=== PATIENT | female | born 1990 | race African-American/Black ===

== ENCOUNTER 2017-12-20 12:58 | Inpatient (IN) | payer OTHER ==
[2017-12-20] MEDS ORDERED: Dinoprostone* 10 MG VAG.SUPP VAGINAL ONE (15:12)
[2017-12-20] MEDS ORDERED: Nalbuphine* 10 MG/ML 1 ML VIAL IV ONE (22:25)
[2017-12-20] MEDS ORDERED: Promethazine INJ(RESTRICTED)* 25 MG/ML 1 ML VIAL IV ONE (22:25)
[2017-12-20] MEDS ORDERED: Buffered Lidocaine 0.9% SYRIN* 5 ML/SYR SYRINGE ONE (22:34)
[2017-12-20 23:05] LABS: ABS Basophils 0.1 10^3/ul (0-0.2); ABS Eosinophils 0.1 10^3/ul (0-0.6); ABS Lymphocytes 1.5 10^3/ul (1.0-4.8); ABS Monocytes 0.6 10^3/ul (0-0.8); ABS Neutrophils 2.7 10^3/ul (1.5-7.7); ABS Nucleated RBC 0 10^3/ul; Eosinophil % 1.1 % (0-6); Hematocrit 31 % (35-47); Hemoglobin 10.2 g/dl (12.0-16.0); Lymphocyte % 31.1 % (25-47); Mean Corpuscular HGB Conc 33 g/dl (31-36); Mean Corpuscular Hemoglobin 27 pg (27-31); Mean Corpuscular Volume 83 fL (80-97); Mean Platelet Volume 10.4 um3 (7.4-10.4); Nucleated Red Blood Cells % 0; Platelet Count 155 10^3/ul (150-450); Red Blood Count 3.74 10^6/ul (4.00-5.40); Red Cell Distribution Width 16 % (10.5-15)
[2017-12-21] MEDS ORDERED: Nalbuphine* 10 MG/ML 1 ML VIAL IV ONE (04:12)
[2017-12-21] MEDS ORDERED: Nalbuphine* 10 MG/ML 1 ML VIAL ONE (04:16)
[2017-12-21] MEDS ORDERED: Oxytocin in LR* 20 UNITS/1,000 ML BAG IVPB SCH (10:00)
[2017-12-21] MEDS ORDERED: OBEPIDURAL* 250 ML EPIDURAL ONE (12:49)
--- NOTE | 2017-12-21 15:01 | HP ---
General Information - General Information Maternal Age: 27 Grav: 1 Para: 0 SAB: 0 IEA: 0 Estimated Due Date: 12/18/17 Determined By: LMP Gestational Age in Weeks and Days: 40 Weeks and 2 Days Maternal Blood Type and Rh: B Positive - Results this Serology/RPR Result: Non-Reactive Rubella Result: Immune HBsAg Result: Negative HIV Result: Negative GBS Culture Result: Negative Past Medical History Delivery History: See Records - G1 Pertinent Past Medical History: Non-Contributory Pertinent Past Surgical History: None - Antepartal Records Antepartal Records: Reviewed, Complicated by: - excessive weight gain , LGA (EFW 9lb 2oz at 39 wks) Review of Systems Constitutional: Comfortable CV Complaint: No Respiratory: Shortness of Breath: No Gastrointestinal: No Nausea/Vomiting Genitourinary: No Dysuria, No Bleeding, No Leaking Fluid Musculoskeletal: Contractions Neurological: No Headache Movement: Normal Exam Allergies/Adverse Reactions: Allergies No Known Allergies Allergy (Verified 11/03/17 09:14) VS normal, afebrile Lab Values - Entire Visit: Laboratory Tests 12/20/17 12/20/17 22:50 22:50 WBC 5.0 RBC 3.74 L Hgb 10.2 L Hct 31 L MCV 83 MCH 27 MCHC 33 RDW 16 H Plt Count 155 MPV 10.4 Neut % (Auto) 55.3 Lymph % (Auto) 31.1 Elk % (Auto) 11.3 H Eos % (Auto) 1.1 Baso % (Auto) 1.2 Absolute Neuts (auto) 2.7 Absolute Lymphs (auto) 1.5 Absolute Monos (auto) 0.6 Absolute Eos (auto) 0.1 Absolute Basos (auto) 0.1 Absolute Nucleated RBC 0 Nucleated RBC % 0 Blood Type B Positive Antibody Screen Negative - Measurements Height: 5 ft 4 in Weight: 270 lb Weight in lbs: [phone] Body Mass Index (BMI): 46.3 Pre- Weight: 200 lb Weight Gained This : 70 lbs and 0 ozs - Exam Abdomen: No Upper Quadrant Pain Breast: Breast Exam Deferred Heart: Normal Rhythm/Heart Sounds HEENT: No Significant Findings Lungs: Clear Bilaterally Rectal: Rectal Exam Deferred - Abdominal Exam Abdomen Exam: Non-Tender - Ultrasound/Biophysical Profile Ultrasound Status: Not Done Targeted Exam Findings Estimated Weight: 9.5 lbs Cervical Exam: 3cm Effacement: 80% Station: -1 Presenting Part: Vertex Membrane Status: Intact EFM Findings - External Monitor Findings Baseline Heart Rate: 150 External Monitor Findings: Accelerations Present, No Pattern of Variable or Late Decelerations, Variability Moderate Contractions: Regular, Mild, Moderate Contraction Frequency: Q3-4 min Assessment/Plan - Reason for Visit Reason for Visit: Pt sent from office yesterday for induction of labor at 40+2 wks. Pt with excessive weight gain, EFW over 9 lbs last week. Received cervidil last night, now dana with mild to moderate strength, cervix changed to 3cm dilation. - Obstetrical Risk Factors Obstetrical Risk Factors: Obesity - Plan Plan: Induction - Admit, pitocin to augment ctx. Epidural and then AROM. - Date/Time of Admission Date of Admission: 12/21/17 Time of Admission: 09:00
[2017-12-21] MEDS ORDERED: EPHEDrine (Pressors)* 50 MG/ML VIAL IV PUSH PRN ×2 (15:08)
[2017-12-21] MEDS ORDERED: Sodium Citrate/Citric Acid* 15 ML UDC PO PRN (15:08)
[2017-12-21] MEDS ORDERED: Hetastarch 6% in NS* 200 ML IV PRN (15:08)
[2017-12-21] MEDS ORDERED: Phenylephrine IV* 40 MCG/ML 10 ML SYRINGE IV PUSH PRN ×2 (15:08)
[2017-12-21] MEDS ORDERED: Famotidine TAB* 20 MG PO PRN (15:08)
[2017-12-21] MEDS ORDERED: OBEPIDURAL* 250 ML EPIDURAL SCH (16:00)
[2017-12-21] MEDS ORDERED: ceFOXitin 2 GM IVPREMIX* 2 GM/50 ML BAG ONE (17:29)
[2017-12-21] MEDS ORDERED: Sodium Citrate/Citric Acid* 15 ML UDC ONE (17:29)
[2017-12-21] MEDS ORDERED: Acetaminophen TAB* 325 MG ONE (17:31)
[2017-12-21] MEDS ORDERED: Lidocaine 2% PF* 10 ML AMP ONE (17:51)
[2017-12-21] MEDS ORDERED: OXYTOCIN* 10 UNITS/ML 1 ML VIAL ONE (17:52)
[2017-12-21] MEDS ORDERED: Ketorolac INJ* 30 MG/ML 1 ML VIAL ONE (18:27)
[2017-12-21] MEDS ORDERED: Famotidine IV* 10 MG/ML 2 ML (20 mg) ONE (18:27)
[2017-12-21] MEDS ORDERED: Morphine PF AMP (0.5MG/ML)* 5 MG/10 ML AMP ONE (18:29)
[2017-12-21] MEDS ORDERED: Scopolamine PATCH Remove* 1 NOTE MISC PATCH OFF PRN (18:30)
[2017-12-21] MEDS ORDERED: Ketorolac INJ* 30 MG/ML 1 ML VIAL IV PRN (18:30)
[2017-12-21] MEDS ORDERED: fentaNYL* 50 MCG/ML 2 ML VIAL (100 MCG VIAL) ONE (18:32)
[2017-12-21] MEDS ORDERED: fentaNYL* 50 MCG/ML 2 ML VIAL (100 MCG VIAL) IV PRN (19:20)
[2017-12-21] MEDS ORDERED: Naloxone* 0.4 MG/ML 1 ML VIAL IV PRN ×2 (19:20→19:22)
[2017-12-21] MEDS ORDERED: Acetaminophen TAB* 325 MG PO PRN ×2 (19:20→19:22)
[2017-12-21] MEDS ORDERED: DiMENhydriNATE IV* 50 MG/ML VIAL IV PUSH PRN (19:22)
[2017-12-21] MEDS ORDERED: PROCHLORPERAZINE INJ 5 MG/ML 2 ML VIAL IV PRN (19:22)
[2017-12-21] MEDS ORDERED: Nalbuphine* 10 MG/ML 1 ML VIAL IV PRN (19:22)
[2017-12-21] MEDS ORDERED: diPHENhydraMINE IV* 50 MG/ML 1 ml VIAL (BENADRYL) IV PRN (19:22)
[2017-12-21] MEDS ORDERED: Ondansetron INJ* 2 MG/ML VIAL IV PRN (19:22)
[2017-12-21] MEDS ORDERED: HYDROcodone/ACETAMIN 5-325 MG* 1 TAB PO PRN ×2 (19:22)
[2017-12-21] MEDS ORDERED: Scopolamine 1.5 mg* PATCH TRANSDERM PRN (19:22)
[2017-12-21] MEDS ORDERED: Witch Hazel PAD* JAR TOPICAL PRN (21:31)
--- NOTE | 2017-12-21 21:54 | OP ---
OPERATIVE REPORT: DATE OF OPERATION: 12/21/17 DATE OF : 86 SURGEON: Santiago Gipson MD SUPER[employer]OR [employer]: Samantha Florez MD, and VIVIANA Ronquillo. ANESTHESIOLOGISTS: Dr. Ledezma and Dr. Peter. ANESTHESIA: Epidural. PRE-OP DIAGNOSIS: Severe tachycardia remote from delivery. POST-OP DIAGNOSIS: Severe tachycardia remote from delivery. PROCEDURE PERFORMED: Primary low transverse section. ESTIMATED BLOOD LOSS: 900 cc. URINE OUTPUT: 150 cc. IV FLUIDS: 2500 cc lactated Ringer's. MATERIALS TO LAB: Cord blood and cord gases. INDICATIONS: This patient was a 27-year-old, 1, para 0, who presented yesterday from the office at 40 plus 2 weeks gestation for induction of labor, partly for social reasons, with a fetus that was known to be large for gestational age. She was given Cervidil overnight for cervical ripening. This morning, she received Pitocin augmentation of her contractions. She was 3 to 4 cm dilated and received an epidural for pain management. Artificial rupture of membranes was productive of clear fluid and the heart tracing was in the 140s to 150s with a category 1 tracing. Within another hour to 2 hours, the patient's heart tracing increased into the 200s over just a few minutes and remained there with continued moderate variability, but did not improve with IV fluids and position changes. A scalp electrode was placed and the heart rate was confirmed. Considering the cervix was still only 4 cm dilated without any significant tire changer the last few hours and the tachycardia was persistent, the decision was made to proceed with a section. This patient was extensively counseled regarding the risks of surgery including bleeding, transfusion, infection, and organ injury, and consent was signed. FINDINGS: Normal-appearing uterus, fallopian tubes, and ovaries. Delivery was productive of a male with Apgars of 8 and 8. Weight was 9 pounds 7 ounces. The infant cried and had excellent tone immediately on delivery. COMPLICATIONS: None. DESCRIPTION OF PROCEDURE: The risks, benefits, and alternatives were described to the patient and informed consent was obtained. The patient was taken to the operating room with IV running where epidural anesthesia was induced and found to be adequate. The patient was prepped and draped in the normal sterile fashion in the dorsal supine position with a leftward tilt. A Pfannenstiel skin incision was made with a scalpel and this was carried down to the underlying fascia sharply. The fascia was then scored in the midline with the scalpel. The incision was extended using Tay scissors. The rectus muscles were dissected off the rectus fascia using blunt and sharp dissection. The rectus muscles were in the midline bluntly. The peritoneum was also entered bluntly. A bladder blade was placed. A low transverse uterine incision was made with the scalpel. This was carried down to the amniotic cavity which was productive of clear fluid. The incision was extended with blunt traction. The head was elevated to the level of the incision without difficulty and delivered through the incision. With fundal pressure, the shoulders and body delivered without difficulty. The infant had excellent tone and cried immediately on delivery. The cord was doubly clamped and cut. The infant was then handed to the awaiting r d manager. Cord blood and gases were collected. The placenta then delivered with manual extraction. The uterus was then exteriorized and cleared of all clots and debris. The uterine incision was reapproximated using 0 Polysorb in a running- locked fashion. A second layer of imbricating sutures of 0 Polysorb was also placed. Several additional stitches were placed with 0 Polysorb near the left apex to obtain good hemostasis. The posterior cul-de-sac was irrigated with saline. The uterus was then returned to the abdomen, and the incision was reinspected and noted to be hemostatic. The peritoneum was closed with 3-0 Polysorb in a running fashion. The fascia was closed with 0 Polysorb in a running fashion. Subcutaneous tissues irrigated and made hemostatic with the Bovie. They were then reapproximated using 3-0 Vicryl in interrupted sutures. The skin was then closed with 4-0 Monocryl in a subcuticular stitch. Mastisol and Steri-Strips were placed over the incision which was then covered with a sterile bandage. The patient tolerated the procedure well. Sponge, lap, and needle counts were correct x2. [id number] #: [id number] [facility]
[2017-12-22 06:16] LABS: ABS Basophils 0.1 10^3/ul (0-0.2); ABS Eosinophils 0 10^3/ul (0-0.6); ABS Lymphocytes 0.8 10^3/ul (1.0-4.8); ABS Monocytes 0.8 10^3/ul (0-0.8); ABS Neutrophils 9.5 10^3/ul (1.5-7.7); ABS Nucleated RBC 0 10^3/ul; Eosinophil % 0.1 % (0-6); Hematocrit 25 % (35-47); Hemoglobin 8.4 g/dl (12.0-16.0); Lymphocyte % 7.4 % (25-47); Mean Corpuscular HGB Conc 33 g/dl (31-36); Mean Corpuscular Hemoglobin 27 pg (27-31); Mean Corpuscular Volume 82 fL (80-97); Nucleated Red Blood Cells % 0; Platelet Count 123 10^3/ul (150-450); Red Blood Count 3.08 10^6/ul (4.00-5.40); Red Cell Distribution Width 16 % (10.5-15); White Blood Count 11.2 10^3/ul (3.5-10.8)
[2017-12-22] MEDS: Simethicone TAB* 80 MG TAB.CHEW PO SCH ×4 (08:26→21:30)
[2017-12-22] MEDS: Docusate CAP* 100 MG PO SCH ×3 (08:26→21:30)
[2017-12-22] MEDS: Ferrous Gluconate TAB* 324 MG TAB PO SCH ×2 (08:26→21:30)
[2017-12-22] MEDS ORDERED: oxyCODONE/Acetamin 5/325 MG* TAB PO PRN (10:31)
[2017-12-22] MEDS ORDERED: Ibuprofen TAB* 600 MG ONE (16:11)
[2017-12-22] MEDS: Ibuprofen TAB* 600 MG PO SCH ×2 (16:14→22:00)
[2017-12-22] MEDS ORDERED: Ibuprofen TAB* 600 MG PO SCH (18:30)
[2017-12-22] MEDS: oxyCODONE/Acetamin 5/325 MG* TAB PO PRN (21:30)
[2017-12-23] MEDS: Ibuprofen TAB* 600 MG PO SCH ×3 (04:21→17:39)
[2017-12-23] MEDS: Docusate CAP* 100 MG PO SCH ×3 (09:03→20:57)
[2017-12-23] MEDS: Simethicone TAB* 80 MG TAB.CHEW PO SCH ×4 (09:04→20:57)
[2017-12-23] MEDS: oxyCODONE/Acetamin 5/325 MG* TAB PO PRN ×2 (09:04→20:56)
[2017-12-23] MEDS: Ferrous Gluconate TAB* 324 MG TAB PO SCH ×2 (09:04→20:56)
[2017-12-24] MEDS: Ibuprofen TAB* 600 MG PO SCH ×3 (03:57→10:09)
[2017-12-24] MEDS: oxyCODONE/Acetamin 5/325 MG* TAB PO PRN ×3 (03:59→13:25)
[2017-12-24] MEDS: Simethicone TAB* 80 MG TAB.CHEW PO SCH ×2 (08:23→13:25)
[2017-12-24] MEDS: Docusate CAP* 100 MG PO SCH ×2 (08:23→14:35)
[2017-12-24] MEDS: Ferrous Gluconate TAB* 324 MG TAB PO SCH (08:23)
[2017-12-24 13:27] VITALS: BP 104/61
== END 2017-12-24 14:37 | disposition home or self-care (01) | DRG 540 ==
LOC: MCHOBOUT 12:58 → MCHOB 12-21 09:29
PROVIDERS: ADMIT Obstetrics & Gynecology; ATTEND Obstetrics & Gynecology
PROC: 10907ZC Drainage of Amniotic Fluid, Therapeutic from Products of Conception, Via Natural or Artificial Opening (ICD-10-PCS; 2017-12-21)
PROC: 10D00Z1 Extraction of Products of Conception, Low, Open Approach (ICD-10-PCS; 2017-12-21)
PROC: 4A1HXCZ Monitoring of Products of Conception, Cardiac Rate, External Approach (ICD-10-PCS; 2017-12-21)
PROC: 4A1H7CZ Monitoring of Products of Conception, Cardiac Rate, Via Natural or Artificial Opening (ICD-10-PCS; 2017-12-21)
PROC: 10H073Z Insertion of Monitoring Electrode into Products of Conception, Via Natural or Artificial Opening (ICD-10-PCS; 2017-12-21)
PROC: 3E0P7VZ Introduction of Hormone into Female Reproductive, Via Natural or Artificial Opening (ICD-10-PCS; principal; 2017-12-21 17:42)
DX: O48.0 Post-term pregnancy (principal); Z68.42 Body mass index [BMI] 45.0-49.9, adult; O26.03 Excessive weight gain in pregnancy, third trimester; O36.63X0 Maternal care for excessive fetal growth, third trimester, not applicable or unspecified; Z3A.40 40 weeks gestation of pregnancy; O99.214 Obesity complicating childbirth; Z37.0 Single live birth; O76 Abnormality in fetal heart rate and rhythm complicating labor and delivery; O90.81 Anemia of the puerperium
CPT/HCPCS: 36415; 85025; 86850; 86900; 86901; A9270-GY; J0694; J1885; J2001; J2300; J2550; J2590; J3010